=== PATIENT | male | born 1990 | race Caucasian/White ===

== ENCOUNTER 2016-04-09 10:42 | Emergency (ER) | payer BC ==
[~2016-04-09] VITALS: Ht 185.4 cm; Wt 104.3 kg
[~2016-04-09 10:42] MED LIST: IBUPROFEN800 MG ORAL; NKM; NORCO 5-325 TA1 EACH ORAL; VALIUM10 MG ORAL
[2016-04-09 12:10] VITALS: BP 101/54
[2016-04-09] MEDS ORDERED: PRILOSEC OTC20 MG ORAL (12:16)
[2016-04-09] MEDS ORDERED: IBUPROFEN800 MG ORAL (12:16)
[2016-04-09 12:24] VITALS: BP 101/54
--- NOTE | 2016-04-09 12:43 | Diagnostic Imaging Report ---
Indication: Chest pain, shortness of breath Technique: Single portable AP view of the chest. Findings: Comparison: None. The bones and extra pulmonary soft tissues, cardiomediastinal silhouette, pulmonary vasculature and parenchyma, and pleural surfaces are unremarkable. IMPRESSION: Negative portable AP chest.
--- NOTE | 2016-04-14 04:05 | Emergency Room Report ---
History of Present Illness General Chief Complaint: General Complaint Source: Patient Present Illness HPI Patient is a 25-year-old male who presented after having increased cough and chest discomfort. The patient gradual onset of symptoms. He had not been vomiting. Patient reported having some mild shortness of breath. The patient reported having subjective fever. He had not been having any diarrhea. Allergies: Coded Allergies: No Known Allergies (Unverified , 05/07/14) Patient History Past Medical History: see triage record Reviewed Nursing Documentation: PMH: Agreed, PSxH: Agreed Nursing Documentation-PMH Past Medical History: No Stated History Review of Systems All Other Systems: negative except mentioned in HPI Physical Exam Vital Signs Date Time Temp Pulse Resp B/P Pulse Ox O2 Delivery O2 Flow Rate FiO2 04/09/16 10:54 98.2 114 20 116/70 95 Room Air Sp02 EP Interpretation: reviewed, normal General Appearance: normal inspection, well appearing, no apparent distress, alert, GCS 15 Head: atraumatic ENT: normal ENT inspection, hearing grossly normal, normal voice Neck: normal inspection, full range of motion, supple, no bony tend Respiratory: normal inspection, lungs clear, normal breath sounds, no respiratory distress, no retraction, no wheezing Cardiovascular #1: regular rate, rhythm, no edema Gastrointestinal: normal inspection, normal bowel sounds, non tender, soft, no guarding, no hernia Genitourinary: no CVA tenderness Musculoskeletal: normal inspection, back normal, normal range of motion Neurologic: normal inspection, alert, oriented x3, responsive, acquisition professional III-XII nml as tested, speech normal Psychiatric: normal inspection, judgement/insight normal, mood/affect normal Skin: normal inspection, normal color, no rash Medical Decision Making Diagnostic Impression: Primary Impression: Viral syndrome ER Course Patient presented for cough. Differential diagnosis included but was not limited to bronchitis, pneumonia, pulmonary embolism, pericarditis, asthma, foreign body. The patient is advised to continue ibuprofen. The patient is advised to follow up with primary care doctor in 1-2 days. Patient is advised to return if any worsening condition or if any changes in status that are concerning. Last Vital Signs Date Time Temp Pulse Resp B/P Pulse Ox O2 Delivery O2 Flow Rate FiO2 04/09/16 12:24 98.2 100 16 101/54 99 Room Air Status: improved Disposition: HOME, SELF-CARE Condition: Stable Scripts Omeprazole Magnesium (PRILOSEC OTC) 20 Mg Tablet.dr 20 MG ORAL DAILY, #30 TAB Prov: Gato Lindo 04/09/16 Ibuprofen* (MOTRIN*) 800 Mg Tablet 800 MG ORAL Q8H for For Pain, #15 TAB 0 Refills Prov: Gato Lindo 04/09/16 Referrals: NOT CHOSEN IPA/,REFERRING (PCP) Patient Instructions: Viral Respiratory Infection Gato Lindo Apr 14, 2016 04:05
--- NOTE | 2016-05-08 15:39 | Cardiology Report ---
APPROVED REPORT EKG Measurement Heart [id number] Sinus tachycardia Otherwise normal ECG
== END 2016-04-09 12:24 | disposition home or self-care (01) ==
LOC: EMR 11:35
DX: B34.9 Viral infection, unspecified (principal)
CPT/HCPCS: 71010; 93005; 99283